=== PATIENT | female | born 1980 | race Hispanic/Latino ===

== ENCOUNTER 2018-11-06 11:37 | Inpatient (IN) | payer SELFPAY ==
[2018-11-06] MEDS ORDERED: CARDIZEM ONE (12:55)
[2018-11-06] MEDS ORDERED: CARDIZEM IV ONE (13:03)
--- NOTE | 2018-11-06 13:14 | Emergency Department Report ---
HPI - General Chief Complaint: Dyspnea/Respdistress Time Seen by Provider: 11/06/18 12:57 - HPI HPI: Room 2 The patient is a 38-year-old female presenting with a chief complaint of shortness of breath. Patient states this morning she awakened with palpitations feeling dizzy and short of breath. Patient denies chest pain. Patient also states she's had a cough productive of clear sputum for the past few days. Location: Heart, see above Duration: [See above] Quality: Palpitations, short of breath Severity: Moderate Modifying factors: [see above] Context: [see above] Mode of transportation: Unknown ED Past Medical Hx - Past Medical History Hx Hypertension: Yes Hx Diabetes: Yes Additional medical history: BELLS PALSY - Surgical History Additional Surgical History: C SECTION - Family History Family history: no significant - Social History Smoking Status: Former Smoker (none 20 years) Substance Use Type: None (denies illicit drug use) ED Review of Systems ROS: Stated complaint: SOB Other details as noted in HPI Constitutional: denies: fever Eyes: denies: eye pain ENT: denies: throat pain Respiratory: shortness of breath Cardiovascular: palpitations. denies: chest pain Endocrine: no symptoms reported Gastrointestinal: denies: abdominal pain Genitourinary: denies: dysuria Musculoskeletal: denies: back pain Neurological: denies: headache Physical Exam - Physical Exam Vital Signs: Vital Signs 11/06/18 11/06/18 12:31 13:05 Temperature 98.4 F Pulse Rate 77 160 H Respiratory 18 Rate Blood Pressure 135/66 116/85 O2 Sat by Pulse 98 Oximetry Physical Exam: GENERAL: The patient is well-developed well-nourished female sitting on stretcher not appearing to be in acute distress. [] HEENT: Normocephalic. Atraumatic. Extraocular motions are intact. Patient has moist mucous membranes. NECK: Supple. Trachea midline CHEST/LUNGS: Clear to auscultation. There is no respiratory distress noted. HEART/CARDIOVASCULAR: Irregularly irregular. There is tachycardia. There is no gallop rub or murmur. ABDOMEN: Abdomen is soft, nontender. Patient has normal bowel sounds. There is no abdominal distention. SKIN: There is no rash. There is no diaphoresis. NEURO: The patient is awake, alert, and oriented. The patient is cooperative. The patient has normal speech MUSCULOSKELETAL: There is no evidence of acute injury. ED Course Vital Signs 11/06/18 11/06/18 12:31 13:05 Temperature 98.4 F Pulse Rate 77 160 H Respiratory 18 Rate Blood Pressure 135/66 116/85 O2 Sat by Pulse 98 Oximetry ED Medical Decision Making - Lab Data Result diagrams: 11/06/18 13:08 11/06/18 13:08 Laboratory Tests 11/06/18 11/06/18 11/06/18 13:08 13:08 13:08 WBC 11.7 H RBC 5.18 H Hgb 15.8 H Hct 47.2 H MCV 91 MCH 31 MCHC 34 RDW 13.8 Plt Count 281 Lymph % (Auto) 30.9 Burt % (Auto) 9.3 H Eos % (Auto) 0.2 Baso % (Auto) 0.8 Lymph # 3.6 Burt # 1.1 H Eos # 0.0 Baso # 0.1 Seg Neutrophils % 58.8 Seg Neutrophils # 6.9 Sodium 139 Potassium 4.0 Chloride 101.3 Carbon Dioxide 24 Anion Gap 18 BUN 8 Creatinine 0.8 Estimated GFR > 60 BUN/Creatinine Ratio 10 Glucose 141 H Calcium 9.2 Magnesium Total Creatine Kinase 57 CK-MB (CK-2) 1.2 CK-MB (CK-2) Rel Index 2.1 Troponin T < 0.010 TSH Free T4 11/06/18 11/06/18 13:08 13:08 WBC RBC Hgb Hct MCV MCH MCHC RDW Plt Count Lymph % (Auto) [place] % (Auto) Eos % (Auto) Baso % (Auto) Lymph # Burt # Eos # Baso # Seg Neutrophils % Seg Neutrophils # Sodium Potassium Chloride Carbon Dioxide Anion Gap BUN Creatinine Estimated GFR BUN/Creatinine Ratio Glucose Calcium Magnesium 1.90 Total Creatine Kinase CK-MB (CK-2) CK-MB (CK-2) Rel Index Troponin T TSH 1.200 Free T4 1.40 - EKG Data -: EKG Interpreted by Me Rate: tachycardia - EKG Data When compared to previous EKG there are: previous EKG unavailable Interpretation: other (A. fib with a rapid ventricular response of 149 bpm) - Radiology Data Radiology results: image reviewed (chest x-ray) interpreted by me: Chest x-ray-no focal infiltrates, no pneumothorax - Differential Diagnosis patient fibrillation, A. fib with RVR, hyperthyroidism, Critical care attestation.: If time is entered above; I have spent that time in minutes in the direct care of this critically ill patient, excluding procedure time. ED Disposition Clinical Impression: Atrial fibrillation with rapid ventricular response, Shortness of breath Disposition: OP ADMIT IP TO THIS HOSP Is pt being admited?: Yes Does the pt Need Aspirin: Yes Condition: Fair Time of Disposition: 13:56 (hospitalist paged (Dr Noel))
[2018-11-06] MEDS ORDERED: ASPIRIN PO ONE (13:16)
[2018-11-06 13:23] LABS: Basophils # (Auto) 0.1 K/mm3 (0.0-0.1); Basophils % (Auto) 0.8 % (0.0-1.8); Eosinophils % (Auto) 0.2 % (0.0-4.3); Hematocrit 47.2 % (30.3-42.9); Hemoglobin 15.8 gm/dl (10.1-14.3); Lymphocytes # (Auto) 3.6 K/mm3 (1.2-5.4); Lymphocytes % (Auto) 30.9 % (13.4-35.0); Mean Corpuscular HGB Conc 34 % (30-34); Mean Corpuscular Hemoglobin 31 pg (28-32); Mean Corpuscular Volume 91 fl (79-97); Monocytes # (Auto) 1.1 K/mm3 (0.0-0.8); Monocytes % (Auto) 9.3 % (0.0-7.3); Platelet Count 281 K/mm3 (140-440); Red Blood Count 5.18 M/mm3 (3.65-5.03); Red Cell Distribution Width 13.8 % (13.2-15.2)
--- NOTE | 2018-11-06 13:34 | XRay Report ---
FINAL REPORT PROCEDURE: XR CHEST ROUTINE 2V TECHNIQUE: PA and lateral chest radiographs were obtained. CPT 71141 HISTORY: Shortness of breath COMPARISON: No prior studies are available for comparison. FINDINGS: Heart: Normal. Mediastinum/Vessels: Normal. Lungs/Pleural space: No infiltrate, effusion, or pneumothorax. Bony thorax: No acute osseous abnormality. Other: IMPRESSION: No pulmonary infiltrates are identified.
[2018-11-06 13:42] LABS: BUN/Creatinine Ratio 10; Blood Urea Nitrogen 8 mg/dL (7-17); Calcium 9.2 mg/dL (8.4-10.2); Hemolysis Index 16
[2018-11-06 13:44] LABS: Creatine Kinase MB 1.2 ng/mL (0.0-4.0)
[2018-11-06 13:53] LABS: Free T4 (Free Thyroxine) 1.4 ng/dL (0.76-1.46)
[2018-11-06] MEDS ORDERED: CARDIZEM 100 MG in D5W 80 ML IV SCH (14:00)
[2018-11-06] MEDS ORDERED: ZOFRAN IV PRN (14:42)
[2018-11-06] MEDS ORDERED: SODIUM CHLORIDE FLUSH SYRINGE 10 ML IV PRN ×2 (14:42→14:47)
[2018-11-06] MEDS ORDERED: PROVENTIL IH PRN (14:42)
[2018-11-06] MEDS ORDERED: NITROSTAT SL PRN (14:47)
[2018-11-06] MEDS ORDERED: BABY ASPIRIN PO STA ×2 (14:47→22:59)
--- NOTE | 2018-11-06 14:47 | History and Physical Report ---
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 Pt states that she has experienced shortness of breath and pain in her chest over the past 3 days with acute worsening symptoms that began this morning after awaking from sleep around 0800hrs. Pt states that her pain is 5/10, substernal, nonradiating, localized to the left side of her chest, nonradiating, associated with palpitations, shortness of breath, dizziness, and diaphoresis. Pt acknowledges decreased exercise tolerance. Pain not worsened with exertion, and not relieved with rest. Pt transported to [facility] for further care and evaluation. Pt seen and evaluated in ED and found to have ACS as well as New Onset Atrial Fib, and suspected Diastolic CHF. Pt admitted to telemetry. Cardiology consulted in ED. Past History Past Medical History: diabetes, hypertension, other (MO, Canyon palsy) Past Surgical History: Social history: single. denies: smoking, alcohol abuse, prescription drug abuse Family history: diabetes, hypertension Medications and Allergies Allergies Allergy/AdvReac Type Severity Reaction Status Date / Time No Known Allergies Allergy Unverified 11/06/18 12:31 Active Meds: Active Medications Acetaminophen (Tylenol) 650 mg PO Q4H PRN PRN Reason: Pain MILD(1-3)/Fever >100.5/ONEAL Albuterol (Proventil) 2.5 mg IH Q4HRT PRN PRN Reason: Shortness Of Breath Diltiazem HCl (Cardizem) 30 mg PO Q6HR LANNY Ondansetron HCl (Zofran) 4 mg IV Q8H PRN PRN Reason: Nausea And Vomiting Sodium Chloride (Sodium Chloride Flush Syringe 10 Ml) 10 ml IV BID LANNY Sodium Chloride (Sodium Chloride Flush Syringe 10 Ml) 10 ml IV PRN PRN PRN Reason: LINE FLUSH Review of Systems Constitutional: no weight loss, no weight gain, no fever, no chills Ears, nose, mouth and throat: no ear pain, no ear discharge, no tinnitis, no decreased hearing, no nose pain Breasts: no change in shape, no swelling, no mass Cardiovascular: chest pain, palpitations, shortness of breath, dyspnea on exertion, decreased exercise tolerance, no edema, no syncope Respiratory: no cough, no cough with sputum, no excessive sputum Gastrointestinal: no nausea, no vomiting, no diarrhea Genitourinary Female: no pelvic pain, no flank pain, no menorrhagia, no dysuria, no urinary frequency, no urgency Rectal: no pain, no incontinence, no bleeding Musculoskeletal: no neck stiffness, no neck pain, no shooting arm pain, no arm numbness/tingling, no low back pain, no shooting leg pain Integumentary: no rash, no pruritis, no redness, no sores, no wounds Neurological: no transient paralysis, no paralysis, no weakness, no parathesias, no numbness, no tingling Psychiatric: no anxiety, no memory loss, no change in sleep habits, no sleep dis turbances, no insomnia, no hypersomnia Endocrine: no cold intolerance, no heat intolerance, no polyphagia, no excessive thirst, no polydipsia, no polyuria Hematologic/Lymphatic: no easy bruising, no easy bleeding, no lymphadenopathy, no lymphedema Allergic/Immunologic: no urticaria, no persistent infections, no anaphylaxis, no angioedema Exam - Constitutional Vitals: Temp Pulse Resp BP Pulse Ox 98.4 F 114 H 22 106/75 98 11/06/18 12:31 11/06/18 14:30 11/06/18 14:30 11/06/18 14:30 11/06/18 12:31 General appearance: Present: mild distress, obese - EENT Eyes: Present: PERRL ENT: hearing intact, clear oral mucosa - Neck Neck: Present: supple, normal ROM - Respiratory Respiratory effort: normal Respiratory: bilateral: CTA - Cardiovascular Rhythm: irregularly irregular Heart Sounds: Present: S1 & S2. Absent: rub, click - Extremities Extremities: pulses symmetrical Extremity abnormal: edema Peripheral Pulses: within normal limits - Abdominal General gastrointestinal: Present: soft, non-tender, non-distended, normal bowel sounds Female genitourinary: Present: normal - Integumentary Integumentary: Present: clear, warm, dry - Musculoskeletal Musculoskeletal: gait normal, strength equal bilaterally - Psychiatric Psychiatric: appropriate mood/affect, intact judgment & insight - Neurologic Neurologic: CNII-XII intact, moves all extremities Results - Labs CBC & Chem 7: 11/06/18 13:08 11/06/18 13:08 Labs: Abnormal lab results 11/06/18 11/06/18 Range/Units 13:08 13:08 WBC 11.7 H (4.5-11.0) K/mm3 RBC 5.18 H (3.65-5.03) M/mm3 Hgb 15.8 H (10.1-14.3) gm/dl Hct 47.2 H (30.3-42.9) % [place] % (Auto) 9.3 H (0.0-7.3) % [place] # 1.1 H (0.0-0.8) K/mm3 Glucose 141 H (65-100) mg/dL Assessment and Plan - Patient Problems (1) ACS (acute coronary syndrome) Current Visit: Yes Status: Acute Plan to address problem: Admit to telemetry, serial cardiac enzymes, ekg, morphine, supplemental oxygen, nitro, aspirin, cardiology consulted in ED. (2) Respiratory failure Current Visit: Yes Status: Acute Qualifiers: Chronicity: acute Respiratory failure complication: hypoxia Qualified Code(s): J96.01 - Acute respiratory failure with hypoxia Plan to address problem: Supplemental oxygen, nebulizer therapy, chest x ray, NIPPV as clinically indicated, pulse oximetry (3) Diastolic CHF Current Visit: Yes Status: Acute Qualifiers: Heart failure chronicity: acute Qualified Code(s): I50.31 - Acute diastolic (congestive) heart failure Plan to address problem: Admit to telemetry, cardiology consulted, echo, strict I/o, daily weight, monitor uop q shift, thyroid panel, bnp, (4) Obesity hypoventilation syndrome Current Visit: Yes Status: Acute Plan to address problem: supplemental oxygen, nebulizer therapy, early ambulation, (5) Atrial fibrillation with rapid ventricular response Current Visit: Yes Status: Acute Plan to address problem: Thyroid panel, Echo, cardizem therapy, telemetry monitoring. rate control, CHADS 2Vasc Score:3, will start therapeutic anticoagulation with eliquis. (6) DVT prophylaxis Current Visit: Yes Status: Acute Plan to address problem: SCD to BLE while in bed.
[2018-11-06 15:39] LABS: Chol/HDL Ratio 7.05 %
[2018-11-06 17:35] LABS: Amphetamine Screen,Urine PRESUMPTIVE NEGATIVE; Benzodiazepines Screen,Urine PRESUMPTIVE NEGATIVE; Cocaine Screen,Urine PRESUMPTIVE NEGATIVE; Methadone Screen,Urine PRESUMPTIVE NEGATIVE; Opiate Screen,Urine PRESUMPTIVE NEGATIVE
[2018-11-06 17:51] LABS: Cannabinoid Screen,Urine PRESUMPTIVE POSITIVE
[2018-11-06] MEDS: TYLENOL PO PRN (18:09)
[2018-11-06] MEDS: ELIQUIS PO SCH (18:09)
[2018-11-06] MEDS: CARDIZEM PO SCH ×3 (18:10→23:03)
[2018-11-06] MEDS: SODIUM CHLORIDE FLUSH SYRINGE 10 ML IV SCH (22:58)
[2018-11-07] MEDS: CARDIZEM PO SCH ×2 (05:47→11:55)
[2018-11-07] MEDS: ELIQUIS PO SCH ×2 (05:50→16:06)
[2018-11-07] MEDS: TYLENOL PO PRN (08:47)
[2018-11-07] MEDS: SODIUM CHLORIDE FLUSH SYRINGE 10 ML IV SCH (10:45)
--- NOTE | 2018-11-07 12:11 | Consultation ---
History of Present Illness Consult date: 11/07/18 Consult reason: atrial fibrillation History of present illness: This is a 38 year old woman who gives a history of hypertension, diabetes who presented with palpitations. She was found to be in rapid atrial fibrillation which was treated with intravenous diltiazem. She has since reverted to a stable sinus rhythm, no acute ischemic changes seen on her ECG. TSH is normal. Patient denies a history of arrhythmias. There is no history of coronary artery disease. A cardiac consultation has been requested for further management of paroxysmal Afib. Past History Past Surgical History: Social history: single. denies: smoking, alcohol abuse, prescription drug abuse Family history: diabetes, hypertension Medications and Allergies Allergies Allergy/AdvReac Type Severity Reaction Status Date / Time No Known Allergies Allergy Unverified 11/06/18 12:31 Active Meds: Active Medications Acetaminophen (Tylenol) 650 mg PO Q4H PRN PRN Reason: Pain MILD(1-3)/Fever >100.5/ONEAL Last Admin: 11/07/18 08:47 Dose: 650 mg Documented by: Albuterol (Proventil) 2.5 mg IH Q4HRT PRN PRN Reason: Shortness Of Breath Apixaban (Eliquis) 5 mg PO Q12H [facility]; Protocol Last Admin: 11/07/18 05:50 Dose: 5 mg Documented by: Diltiazem HCl (Cardizem) 30 mg PO Q6HR [facility] Last Admin: 11/07/18 11:55 Dose: 30 mg Documented by: Nitroglycerin (Nitrostat) 0.4 mg SL Q5M PRN PRN Reason: Chest Pain Ondansetron HCl (Zofran) 4 mg IV Q8H PRN PRN Reason: Nausea And Vomiting Sodium Chloride (Sodium Chloride Flush Syringe 10 Ml) 10 ml IV BID [facility] Last Admin: 11/07/18 10:45 Dose: 10 ml Documented by: Sodium Chloride (Sodium Chloride Flush Syringe 10 Ml) 10 ml IV PRN PRN PRN Reason: LINE FLUSH Sodium Chloride (Sodium Chloride Flush Syringe 10 Ml) 10 ml IV PRN PRN PRN Reason: LINE FLUSH Physical Examination Vital Signs Temp Pulse Resp BP Pulse Ox 98.4 F 77 18 135/66 98 11/06/18 12:31 11/06/18 12:31 11/06/18 12:31 12/30/18 12:31 11/06/18 12:31 General appearance: no acute distress HEENT: Positive: PERRL Cardiac: Positive: Reg Rate and Rhythm Lungs: Positive: Decreased Breath Sounds Neuro: Positive: Grossly Intact Extremities: Absent: edema Results 11/06/18 13:08 11/06/18 13:08 Cardiac Enzymes 11/06/18 Range/Units 13:08 CK-MB (CK-2) 1.2 (0.0-4.0) ng/mL Lipids 11/06/18 Range/Units 15:10 Triglycerides 153 H (2-149) mg/dL Cholesterol 268 H (50-199) mg/dL HDL Cholesterol 38 L (40-59) mg/dL Cholesterol/HDL Ratio 7.05 % CBC 11/06/18 Range/Units 13:08 WBC 11.7 H (4.5-11.0) K/mm3 RBC 5.18 H (3.65-5.03) M/mm3 Hgb 15.8 H (10.1-14.3) gm/dl Hct 47.2 H (30.3-42.9) % Plt Count 281 (140-440) K/mm3 Lymph # 3.6 (1.2-5.4) K/mm3 [place] # 1.1 H (0.0-0.8) K/mm3 Eos # 0.0 (0.0-0.4) K/mm3 Baso # 0.1 (0.0-0.1) K/mm3 Comprehensive Metabolic Panel 11/06/18 Range/Units 13:08 Sodium 139 (137-145) mmol/L Potassium 4.0 (3.6-5.0) mmol/L Chloride 101.3 (98-107) mmol/L Carbon Dioxide 24 (22-30) mmol/L BUN 8 (7-17) mg/dL Creatinine 0.8 (0.7-1.2) mg/dL Glucose 141 H (65-100) mg/dL Calcium 9.2 (8.4-10.2) mg/dL Assessment and Plan - Patient Problems (1) Atrial fibrillation with rapid ventricular response Current Visit: Yes Status: Acute Plan to address problem: Afib - reverted to sinus rhythm normal TSH
[2018-11-07 16:24] VITALS: BP 145/90
--- NOTE | 2018-11-07 18:18 | Discharge Summary ---
Providers - Providers Date of Admission: 11/06/18 14:42 Date of discharge: 11/07/18 Attending physician: AVIVA ALEX 11/06/18 Consult to Cardiac Rehabilitation [CONS] Routine Reason For Exam: Phase I 11/06/18 14:44 Consult to Cardiology [CONS] Routine Consulting Provider: WELLINGTON SEGAL Reason For Exam: new onset a fib Primary care physician: WARP HAND Hospitalization Condition: Fair Pertinent studies: ECHO-Normal Hospital course: 38-year-old woman who presented to the hospital with acute symptomatic atrial fibrillation. On presentation, her ECG was rapid atrial fibrillation. She was treated with intravenous Cardizem, and has reverted to a stable sinus rhythm with resolution of her presenting symptoms. EKG in sinus rhythm shows no acute ischemic ST or T-wave abnormalities. There are no obvious precipitating factors, no caffeine or alcohol use. No previous cardiac history. Comorbidities include hypertension for which she is on amlodipine and very low- dose metoprolol, diabetes. Workup so far in the hospital, TSH is normal at 1.2, chest x-ray is normal, echocardiogram shows well-preserved left ventricular systolic function. Recommendations: We will continue her amlodipine for hypertension, but increase metoprolol to 50 mg by mouth twice a day for atrial fibrillation prophylaxis. 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 Patient is stable for cardiac discharge, she will be followed up as an outpatient in 5-7 days for a treadmill stress test. Disposition: TO HOME OR SELFCARE Core Measure Documentation - Palliative Care Palliative Care/ Comfort Measures: Not Applicable - Core Measures Any of the following diagnoses?: none Exam - Constitutional Vitals: Temp Pulse Resp BP Pulse Ox 98.3 F 102 H 20 145/90 94 11/07/18 16:14 11/07/18 16:14 11/07/18 16:14 11/07/18 16:14 11/07/18 16:14 General appearance: Present: no acute distress, well-nourished - EENT Eyes: Present: PERRL ENT: hearing intact, clear oral mucosa - Neck Neck: Present: supple, normal ROM - Respiratory Respiratory effort: normal Respiratory: bilateral: CTA - Cardiovascular Heart rate: 78 Rhythm: regular Heart Sounds: Present: S1 & S2. Absent: rub, click - Extremities Extremities: no ischemia, pulses intact, pulses symmetrical, No edema Peripheral Pulses: within normal limits - Abdominal General gastrointestinal: Present: soft, non-tender, non-distended, normal bowel sounds Female genitourinary: Present: normal - Integumentary Integumentary: Present: clear, warm, dry - Musculoskeletal Musculoskeletal: gait normal, strength equal bilaterally - Psychiatric Psychiatric: appropriate mood/affect, intact judgment & insight - Neurologic Neurologic: CNII-XII intact, moves all extremities Plan Activity: no restrictions Diet: low fat, low cholesterol, low salt Follow up with: PRIMARY CAREMD [Primary Care Provider] - 7 Days WELLINGTON SEGAL MD [Staff Physician] - 7 Days
[2018-11-07] MEDS ORDERED: LOPRESSOR PO SCH (22:00)
== END 2018-11-07 19:41 | disposition home or self-care (01) | DRG 291 ==
LOC: ED 11:37 → 4A 14:42
PROVIDERS: ADMIT Internal Medicine; ATTEND Internal Medicine
DX: I50.31 Acute diastolic (congestive) heart failure (principal); J96.01 Acute respiratory failure with hypoxia; E66.2 Morbid (severe) obesity with alveolar hypoventilation; Z68.41 Body mass index [BMI] 40.0-44.9, adult; I48.91 Unspecified atrial fibrillation; G51.0 Bell's palsy; Z87.891 Personal history of nicotine dependence; Z83.3 Family history of diabetes mellitus; Z82.49 Family history of ischemic heart disease and other diseases of the circulatory system
CPT/HCPCS: 36415; 71046; 80048; 80061; 80307; 82550; 82553; 82962; 83735; 83880; 84439; 84443; 84484; 85025; 85379; 93005; 93010; 93306; 96365; 96375; G0378

== ENCOUNTER 2019-06-26 13:52 | Emergency (ER) | payer BC ==
[2019-06-26 14:11] VITALS: BP 129/80
--- NOTE | 2019-06-26 14:13 | Event Note ---
ED Screening Note Date of service: 06/26/19 Time: 14:09 ED Screening Note: 39 y/o female comes in left rib pain s/p fall this morning at home. LMP 05/21/19. This initial assessment/diagnostic orders/clinical plan/treatment(s) is/are subject to change based on patients health status, clinical progression and re- assessment by fellow clinical providers in the ED. Further treatment and workup at subsequent clinical providers discretion. Patient/guardian urged not to elope from the ED as their condition may be serious if not clinically assessed and managed. Initial orders include:
[2019-06-26] MEDS ORDERED: IBUPROFEN PO ONE (14:41)
--- NOTE | 2019-06-26 14:49 | Emergency Department Report ---
ED Fall HPI - General Chief Complaint: Fall Stated Complaint: FALL INJURY/PAIN Time Seen by Provider: 06/26/19 14:08 Source: patient Mode of arrival: Ambulatory - History of Present Illness Initial Comments: Mrs. Wheeler is a very pleasant 39-year-old female who injured herself at home. She slipped down several steps. The surface was slick and moist. She has left lower rib cage pain. Mild elbow pain. Abrasion to left lower leg. Moderately severe pain. The incident occurred this morning. Multiple abrasions. MD Complaint: fall -: This morning Fall From: down stairs (#) When Fall Occurred: 4-6 hours [employer] Fall Witnessed: no Place Fall Occurred: home Loss of Consciousness: none Prolonged Down Time?: no Symptoms Prior to Fall: none Location: chest Location - Extremities: Left: Forearm, Leg Severity: moderate Severity scale (0 -10): 6 Quality: sharp, dull Context: tripped/slipped Associated Symptoms: denies - Related Data Previous Rx's Medication Instructions Recorded Last Taken Type Metoprolol [Lopressor TAB] 50 mg PO BID #60 tablet 11/07/18 Unknown Rx amLODIPine [Norvasc] 5 mg PO DAILY #30 tab 11/07/18 Unknown Rx Cyclobenzaprine [Flexeril] 10 mg PO TID PRN #20 tablet 06/26/19 Unknown Rx Ibuprofen [Motrin 800 MG tab] 800 mg PO Q8HR PRN #15 tablet 06/26/19 Unknown Rx Allergies Allergy/AdvReac Type Severity Reaction Status Date / Time No Known Allergies Allergy Unverified 11/06/18 12:31 ED Review of Systems ROS: Stated complaint: FALL INJURY/PAIN Other details as noted in HPI Constitutional: denies: fever Respiratory: denies: cough, shortness of breath Cardiovascular: chest pain Gastrointestinal: denies: abdominal pain, nausea, vomiting Skin: lesions Neurological: denies: headache, numbness, paresthesias ED Past Medical Hx - Past Medical History Previous Medical History?: Yes Hx Hypertension: Yes Hx CVA: No Hx Congestive Heart Failure: No Hx Diabetes: Yes Hx Deep Vein Thrombosis: No Hx Pulmonary Embolism: No Hx GERD: No Hx Liver Disease: No Hx Renal Disease: No Hx of Cancer: No Hx Sickle Cell Disease: No Hx Arthritis: No Hx Headaches / Migraines: No Hx Seizures: No Hx Kidney Stones: No Hx Psychiatric Treatment: No Hx Asthma: No Hx COPD: No Hx Tuberculosis: No Hx Dementia: No Hx HIV: No Additional medical history: BELLS PALSY - Surgical History Past Surgical History?: Yes Hx Coronary Stent: No Hx Open Heart Surgery: No Hx Pacemaker: No Hx Internal Defibrillator: No Hx Cholecystectomy: No Hx Appendectomy: No Hx Breast Surgery: No Additional Surgical History: C SECTION - Social History Smoking Status: Never Smoker Substance Use Type: None - Medications Home Medications: Home Medications Medication Instructions Recorded Confirmed Last Taken Type Metoprolol [Lopressor TAB] 50 mg PO BID #60 tablet 11/07/18 Unknown Rx amLODIPine [Norvasc] 5 mg PO DAILY #30 tab 11/07/18 Unknown Rx Cyclobenzaprine [Flexeril] 10 mg PO TID PRN #20 tablet 06/26/19 Unknown Rx Ibuprofen [Motrin 800 MG tab] 800 mg PO Q8HR PRN #15 tablet 06/26/19 Unknown Rx ED Physical Exam - General Limitations: No Limitations General appearance: alert, in no apparent distress - Head Head exam: Present: atraumatic, normocephalic - Eye Eye exam: Present: normal appearance - ENT ENT exam: Present: mucous membranes moist - Neck Neck exam: Present: normal inspection - Respiratory Respiratory exam: Present: normal lung sounds bilaterally, chest wall tenderness. Absent: respiratory distress - Cardiovascular Cardiovascular Exam: Present: regular rate, normal rhythm, normal heart sounds. Absent: systolic murmur, diastolic murmur, rubs, gallop - GI/Abdominal GI/Abdominal exam: Present: soft, normal bowel sounds. Absent: distended, tenderness, guarding, rebound - Extremities Exam Extremities exam: Present: normal inspection - Back Exam Back exam: Present: normal inspection - Neurological Exam Neurological exam: Present: alert, oriented X3 - Psychiatric Psychiatric exam: Present: normal affect, normal mood - Skin Skin exam: Present: warm, dry, normal color, abrasion. Absent: rash - Other Other exam information: Left elbow full range of motion without deformity or crepitus: Chest wall tenderness in the mid axillary line left lower rib cage, multiple abrasions superficial left lower leg ED Course Vital Signs 06/26/19 14:09 Temperature 98.3 F Pulse Rate 84 Respiratory 16 Rate Blood Pressure 129/80 O2 Sat by Pulse 97 Oximetry ED Medical Decision Making - Radiology Data Radiology results: report reviewed Rib series with chest tube coming to radiology impression: No rib fracture no pneumothorax no acute process - Medical Decision Making Left chest wall pain, left elbow contusion, leg abrasions: No evidence of significant traumatic injury prescribed ibuprofen Flexeril Critical care attestation.: If time is entered above; I have spent that time in minutes in the direct care of this critically ill patient, excluding procedure time. ED Disposition Clinical Impression: Chest wall contusion, Leg abrasion, Left elbow contusion, Fall down stairs Disposition: TO HOME OR SELFCARE Is pt being admited?: No Does the pt Need Aspirin: No Condition: Stable Instructions: Contusion in Adults (ED) Prescriptions: Cyclobenzaprine [Flexeril] 10 mg PO TID PRN #20 tablet PRN Reason: Muscle Spasm Ibuprofen [Motrin 800 MG tab] 800 mg PO Q8HR PRN #15 tablet PRN Reason: Pain , Severe (7-10) Forms: Work/School Release Form(ED)
--- NOTE | 2019-06-26 15:22 | XRay Report ---
LEFT RIBS, 4 VIEWS INDICATION: left rib pain s/p fall. COMPARISON: None. IMPRESSION: No displaced left rib fracture is detected on x-ray. No bony lesion. The left lung is w ell-aerated. Signer Name: Andi To Jr, MD Signed: 06/26/2019 3:18 PM Workstation Name: [id number]
== END 2019-06-26 16:01 | disposition home or self-care (01) ==
LOC: ED 13:52
DX: S50.02XA Contusion of left elbow, initial encounter (principal); S20.219A Contusion of unspecified front wall of thorax, initial encounter; S80.812A Abrasion, left lower leg, initial encounter; I10 Essential (primary) hypertension; E11.9 Type 2 diabetes mellitus without complications; G51.0 Bell's palsy; Z98.890 Other specified postprocedural states; Z79.899 Other long term (current) drug therapy; W10.9XXA Fall (on) (from) unspecified stairs and steps, initial encounter; Y93.01 Activity, walking, marching and hiking; Y92.009 Unspecified place in unspecified non-institutional (private) residence as the place of occurrence of the external cause; Y99.8 Other external cause status

== ENCOUNTER 2020-02-23 10:12 | Emergency (ER) | payer BC ==
[2020-02-23 10:40] LABS: Basophils # (Auto) 0.1 K/mm3 (0.0-0.1); Basophils % (Auto) 0.8 % (0.0-1.8); Eosinophils # (Auto) 0.1 K/mm3 (0.0-0.4); Eosinophils % (Auto) 0.8 % (0.0-4.3); Hematocrit 42.9 % (30.3-42.9); Hemoglobin 14.6 gm/dl (10.1-14.3); Lymphocytes # (Auto) 3.5 K/mm3 (1.2-5.4); Lymphocytes % (Auto) 31.7 % (13.4-35.0); Mean Corpuscular HGB Conc 34 % (30-34); Mean Corpuscular Volume 88 fl (79-97); Monocytes # (Auto) 0.9 K/mm3 (0.0-0.8); Platelet Count 257 K/mm3 (140-440); Red Blood Count 4.86 M/mm3 (3.65-5.03); Red Cell Distribution Width 13.7 % (13.2-15.2)
[2020-02-23 10:51] LABS: INR 1.03 (0.87-1.13)
--- NOTE | 2020-02-23 10:57 | XRay Report ---
CHEST 2 VIEWS INDICATION / CLINICAL INFORMATION: Chest Pain. COMPARISON: Chest x-ray on 06/26/2019. FINDINGS: SUPPORT DEVICES: None. HEART / MEDIASTINUM: No significant abnormality. LUNGS / PLEURA: No significant pulmonary or pleural abnormality. No pneumothorax. ADDITIONAL FINDINGS: No significant additional findings. IMPRESSION: 1. No acute findings. No adverse change from previous exams. Signer Name: Edgar Brown MD Signed: 02/23/2020 10:53 AM Workstation Name: [id number]
[2020-02-23 11:01] LABS: BUN/Creatinine Ratio 18; Blood Urea Nitrogen 14 mg/dL (7-17); Calcium 9.2 mg/dL (8.4-10.2); Hemolysis Index 7
--- NOTE | 2020-02-23 11:18 | Emergency Department Report ---
ED Palpitations HPI - General Chief Complaint: Arrhythmia/Palpitations Stated Complaint: SOB Time Seen by Provider: 02/23/20 11:08 Source: patient Mode of arrival: Ambulatory Limitations: No Limitations - History of Present Illness Initial Comments: 40-year-old female with history of A. fib, CHF, presents to ED with palpitations and shortness of breath x5 days. Patient states palpitations initially began 5 days ago but have mostly resolved. She states over the last 2 to 3 days dyspnea on exertion has been worse. Patient states it felt like she was in A. fib. States she is not on any blood thinners currently. Patient denies any orthopnea, leg pain or swelling, and chest pain. 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 Patient denies any COVID symptoms, including fever, cough, loss of smell or taste. She denies being around any known COVID positive patients or persons. MD Complaint: palpitations -: days(s) (5) Context: occured during rest, occured during exertion Arrythmia History: atrial fibrillation Associated Symptoms: shortness of breath. denies: chest pain, cough - Related Data Previous Rx's Medication Instructions Recorded Last Taken Type Metoprolol [Lopressor TAB] 50 mg PO BID #60 tablet 11/07/18 Unknown Rx amLODIPine 5 mg PO DAILY #30 tab 11/07/18 Unknown Rx Cyclobenzaprine [Flexeril] 10 mg PO TID PRN #20 tablet 06/26/19 Unknown Rx Ibuprofen [Motrin 800 MG tab] 800 mg PO Q8HR PRN #15 tablet 06/26/19 Unknown Rx Allergies Allergy/AdvReac Type Severity Reaction Status Date / Time No Known Allergies Allergy Verified 02/23/20 10:12 ED Review of Systems ROS: Stated complaint: SOB Other details as noted in HPI Comment: All other systems reviewed and negative Constitutional: denies: chills, fever Respiratory: SOB with exertion. denies: cough, orthopnea Cardiovascular: denies: chest pain Gastrointestinal: denies: nausea, vomiting Musculoskeletal: other (Denies leg pain or swelling) ED Past Medical Hx - Past Medical History Hx Hypertension: Yes Hx CVA: No Hx Congestive Heart Failure: No Hx Diabetes: Yes Hx Deep Vein Thrombosis: No Hx Pulmonary Embolism: No Hx GERD: No Hx Liver Disease: No Hx Renal Disease: No Hx Sickle Cell Disease: No Hx Arthritis: No Hx Headaches / Migraines: No Hx Seizures: No Hx Kidney Stones: No Hx Psychiatric Treatment: No Hx Asthma: No Hx COPD: No Hx Tuberculosis: No Hx Dementia: No Hx HIV: No Additional medical history: BELLS PALSY/ HIGH CHOLESTROL/ A FIB - Surgical History Hx Coronary Stent: No Hx Open Heart Surgery: No Hx Pacemaker: No Hx Internal Defibrillator: No Hx Cholecystectomy: No Hx Appendectomy: No Hx Breast Surgery: No Additional Surgical History: C SECTION - Social History Smoking Status: Never Smoker Substance Use Type: None - Medications Home Medications: Home Medications Medication Instructions Recorded Confirmed Last Taken Type Metoprolol [Lopressor TAB] 50 mg PO BID #60 tablet 11/07/18 Unknown Rx amLODIPine 5 mg PO DAILY #30 tab 11/07/18 Unknown Rx Cyclobenzaprine [Flexeril] 10 mg PO TID PRN #20 tablet 06/26/19 Unknown Rx Ibuprofen [Motrin 800 MG tab] 800 mg PO Q8HR PRN #15 tablet 06/26/19 Unknown Rx ED Physical Exam - General Limitations: No Limitations General appearance: alert, in no apparent distress, obese - Head Head exam: Present: atraumatic, normocephalic - Eye Eye exam: Present: normal appearance - ENT ENT exam: Present: mucous membranes moist - Neck Neck exam: Present: normal inspection - Respiratory Respiratory exam: Present: normal lung sounds bilaterally. Absent: respiratory distress - Cardiovascular Cardiovascular Exam: Present: regular rate, normal rhythm - GI/Abdominal GI/Abdominal exam: Present: soft. Absent: distended, tenderness - Extremities Exam Extremities exam: Present: normal inspection. Absent: pedal edema, calf tenderness - Neurological Exam Neurological exam: Present: alert, oriented X3 - Psychiatric Psychiatric exam: Present: normal affect, normal mood - Skin Skin exam: Present: warm, dry, intact, normal color ED Course Vital Signs 02/23/20 02/23/20 02/23/20 10:14 10:59 11:01 Temperature 97.8 F Pulse Rate 90 88 Respiratory 20 22 Rate Blood Pressure 121/80 O2 Sat by Pulse 96 98 96 Oximetry 02/23/20 02/23/20 02/23/20 11:05 11:15 11:30 Temperature Pulse Rate 87 87 Respiratory 18 21 15 Rate Blood Pressure 124/86 137/110 O2 Sat by Pulse 99 96 96 Oximetry 02/23/20 02/23/20 11:45 12:01 Temperature Pulse Rate 84 90 Respiratory 22 15 Rate Blood Pressure 120/87 120/87 O2 Sat by Pulse 97 98 Oximetry ED Medical Decision Making - Lab Data Result diagrams: 02/23/20 10:24 02/23/20 10:24 - EKG Data -: EKG Interpreted by [facility] EKG shows normal: sinus rhythm, axis, intervals, QRS complexes, ST-T waves Rate: normal - EKG Data Interpretation: no acute changes - Radiology Data Radiology results: report reviewed, image reviewed - Medical Decision Making 40-year-old female with history of A. fib presents to ED with palpitations and dyspnea. Patient not currently A. fib, EKG shows normal sinus rhythm with no ST changes. Vital signs are normal. Labs were normal, including troponin and d- dimer. Chest x-ray unremarkable, no edema or infiltrates noted. O2 sats are normal, patient is in no respiratory distress. Patient comfortable with discharge home at this time. Advised cardiology follow-up. Return precautions given. - Differential Diagnosis A. fib, ACS, pulmonary edema, pneumonia, pleural effusion, PE Critical care attestation.: If time is entered above; I have spent that time in minutes in the direct care of this critically ill patient, excluding procedure time. ED Disposition Clinical Impression: Palpitations, Shortness of breath Disposition: TO HOME OR SELFCARE Is pt being admited?: No Condition: Stable Instructions: Palpitations (ED), Dyspnea (ED) Referrals: PRIMARY CARE, [Primary Care Provider] - 3-5 Days JASWANT BANKS MD [Staff Physician] - 3-5 Days Forms: Work/School Release Form(ED) Time of Disposition: 12:01
[2020-02-23 12:00] VITALS: BP 120/87
== END 2020-02-23 12:29 | disposition home or self-care (01) ==
LOC: ED 10:12
DX: R06.02 Shortness of breath (principal); R00.2 Palpitations; R06.00 Dyspnea, unspecified; E11.9 Type 2 diabetes mellitus without complications; E78.00 Pure hypercholesterolemia, unspecified; I48.91 Unspecified atrial fibrillation; Z79.899 Other long term (current) drug therapy; Z98.890 Other specified postprocedural states
CPT/HCPCS: 36415; 71046; 80048; 84484; 85025; 85379; 85610; 93005

== ENCOUNTER 2020-08-26 07:04 | Outpatient (CLI) | payer BC | END 2020-08-26 07:05 | disposition home or self-care (01) | LOC: ECHO 07:04 | PROVIDERS: ATTEND Internal Medicine | DX: I34.0 Nonrheumatic mitral (valve) insufficiency (principal); R00.0 Tachycardia, unspecified; I10 Essential (primary) hypertension; E11.9 Type 2 diabetes mellitus without complications; E78.49 Other hyperlipidemia; Z86.79 Personal history of other diseases of the circulatory system | CPT/HCPCS: 93306 ==

== ENCOUNTER 2020-09-23 09:37 | Outpatient (CLI) | payer BC ==
[2020-09-23 11:11] LABS: Chol/HDL Ratio 4.13 %
== END 2020-09-23 09:38 | disposition home or self-care (01) ==
LOC: LAB 09:37
PROVIDERS: ATTEND Internal Medicine
DX: Z13.29 Encounter for screening for other suspected endocrine disorder (principal); E11.9 Type 2 diabetes mellitus without complications; E78.5 Hyperlipidemia, unspecified; Z13.21 Encounter for screening for nutritional disorder
CPT/HCPCS: 36415; 80061; 82306; 82607; 83036; 84443

== ENCOUNTER 2020-10-31 07:35 | Emergency (ER) | payer BC ==
[2020-10-31 08:01] VITALS: BP 158/103
--- NOTE | 2020-10-31 11:53 | Emergency Department Report ---
HPI - General Chief Complaint: Sore Throat Time Seen by Provider: 10/31/20 11:48 - HPI HPI: This is a 40-year-old female presents to the emergency department with a complaint of a sore throat and "my uvula is swollen" upon waking up this morning. She denies any fever, difficulty swallowing, shortness of breath, chest pain. Patient took a dose of Benadryl prior to arrival. She has a past medical history of high cholesterol, atrial fibrillation, diabetes, hypertension, CHF. Her primary care physician is Dr. Bar. No recent travel or sick contacts at home. ED Past Medical Hx - Past Medical History Hx Hypertension: Yes Hx CVA: No Hx Congestive Heart Failure: No Hx Diabetes: Yes Hx Deep Vein Thrombosis: No Hx Pulmonary Embolism: No Hx GERD: No Hx Liver Disease: No Hx Renal Disease: No Hx Sickle Cell Disease: No Hx Arthritis: No Hx Headaches / Migraines: No Hx Seizures: No Hx Kidney Stones: No Hx Psychiatric Treatment: No Hx Asthma: No Hx COPD: No Hx Tuberculosis: No Hx Dementia: No Hx HIV: No Additional medical history: BELLS PALSY/ HIGH CHOLESTROL/ A FIB - Surgical History Hx Coronary Stent: No Hx Open Heart Surgery: No Hx Pacemaker: No Hx Internal Defibrillator: No Hx Cholecystectomy: No Hx Appendectomy: No Hx Breast Surgery: No Additional Surgical History: C SECTION - Social History Smoking Status: Never Smoker - Medications Home Medications: Home Medications Medication Instructions Recorded Confirmed Last Taken Type Metoprolol [Lopressor TAB] 50 mg PO BID #60 tablet 11/07/18 Unknown Rx amLODIPine 5 mg PO DAILY #30 tab 11/07/18 Unknown Rx Cyclobenzaprine [Flexeril] 10 mg PO TID PRN #20 tablet 06/26/19 Unknown Rx Ibuprofen [Motrin 800 MG tab] 800 mg PO Q8HR PRN #15 tablet 06/26/19 Unknown Rx Azithromycin [Zithromax Z-DANITA] 250 mg PO DAILY #6 tab 10/31/20 Unknown Rx ED Review of Systems ROS: Stated complaint: SWOLLEN THROAT Other details as noted in HPI Comment: All other systems reviewed and negative Constitutional: denies: chills, fever Eyes: denies: eye pain, vision change ENT: throat pain. denies: ear pain Respiratory: denies: cough, shortness of breath Cardiovascular: denies: chest pain Gastrointestinal: denies: abdominal pain Musculoskeletal: denies: back pain, arthralgia Skin: denies: rash, lesions Neurological: denies: headache, weakness Physical Exam - Physical Exam Vital Signs: Vital Signs 10/31/20 07:57 Temperature 97.7 F Pulse Rate 104 H Respiratory 18 Rate Blood Pressure 158/103 O2 Sat by Pulse 97 Oximetry Physical Exam: GENERAL: The patient is well-developed well-nourished. HENT: Normocephalic. Atraumatic. Patient has moist mucous membranes. The uvula is mildly to mildly enlarged with some erythema. There is an exudate seen inferiorly. No drooling or trismus. EYES: Extraocular motions are intact. NECK: Supple. Trachea is midline. No palpable lymphadenopathy. CHEST/LUNGS: Clear to auscultation. There is no respiratory distress noted. HEART/CARDIOVASCULAR: Regular. There is no tachycardia. There is no murmur. ABDOMEN: Abdomen is soft, nontender. Patient has normal bowel sounds. SKIN: Skin is warm and dry. NEURO: The patient is awake, alert, and oriented. The patient is cooperative. Normal speech. MUSCULOSKELETAL: There is no tenderness or deformity. There is no limitation range of motion. ED Course Vital Signs 10/31/20 07:57 Temperature 97.7 F Pulse Rate 104 H Respiratory 18 Rate Blood Pressure 158/103 O2 Sat by Pulse 97 Oximetry ED Medical Decision Making - Medical Decision Making Patient has a slightly enlarged and erythematous uvula with an exudate to the inferior portion of the uvula. No drooling or trismus. Vital signs reassuring including being afebrile. The patient will be placed on some azithromycin for developing uvulitis. She has good outpatient follow-up with Dr Bar. Critical Care Time: No Critical care attestation.: If time is entered above; I have spent that time in minutes in the direct care of this critically ill patient, excluding procedure time. ED Disposition Clinical Impression: Uvulitis Hypertension Qualifiers: Hypertension type: essential hypertension Qualified Code(s): I10 - Essential (primary) hypertension Disposition: TO HOME OR SELFCARE Is pt being admited?: No Condition: Stable Instructions: Uvulitis, Hypertension (ED) Additional Instructions: Please follow-up with your primary care physician in the next few days. Take the medications as prescribed. Return to the emergency department with any worsening of your symptoms, new or concerning symptoms not addressed during this current emergency department visit, or with any acute distress. Prescriptions: Azithromycin [Zithromax Z-DANITA] 250 mg PO DAILY #6 tab Referrals: SKIP BAR MD [Primary Care Provider] - 3-5 Days Time of Disposition: 11:52
== END 2020-10-31 12:08 | disposition home or self-care (01) ==
LOC: ED 07:35
DX: K12.2 Cellulitis and abscess of mouth (principal); I10 Essential (primary) hypertension; E11.9 Type 2 diabetes mellitus without complications; Z79.1 Long term (current) use of non-steroidal anti-inflammatories (NSAID); Z79.899 Other long term (current) drug therapy
CPT/HCPCS: 99281

== ENCOUNTER 2021-02-05 09:16 | Outpatient (CLI) | payer BC ==
[2021-02-05 09:40] LABS: Basophils # (Auto) 0.1 K/mm3 (0.0-0.1); Basophils % (Auto) 0.6 % (0.0-1.8); Eosinophils # (Auto) 0.1 K/mm3 (0.0-0.4); Eosinophils % (Auto) 0.9 % (0.0-4.3); Hematocrit 40.4 % (30.3-42.9); Hemoglobin 13.6 gm/dl (10.1-14.3); Lymphocytes # (Auto) 2.9 K/mm3 (1.2-5.4); Lymphocytes % (Auto) 33.6 % (13.4-35.0); Mean Corpuscular HGB Conc 34 % (30-34); Mean Corpuscular Volume 92 fl (79-97); Monocytes # (Auto) 0.7 K/mm3 (0.0-0.8); Monocytes % (Auto) 8.6 % (0.0-7.3); Platelet Count 194 K/mm3 (140-440); Red Blood Count 4.38 M/mm3 (3.65-5.03); Red Cell Distribution Width 13.8 % (13.2-15.2)
[2021-02-05 10:06] LABS: Alanine Aminotransferase 28 units/L (7-56); Blood Urea Nitrogen 11 mg/dL (7-17); Calcium 9.2 mg/dL (8.4-10.2); Chol/HDL Ratio 4.23 %; HDL Cholesterol 46 mg/dL (40-59); Hemolysis Index 7; LDL Cholesterol,Direct 145 mg/dL (50-130)
[2021-02-05 10:21] LABS: BUN/Creatinine Ratio 16
[2021-02-05 11:56] LABS: Creatinine,Urine 93.9 mg/dL (0.1-20.0); Microalbumin/Creatinine Ratio 19.1 ug/mg
== END 2021-02-05 09:17 | disposition home or self-care (01) ==
LOC: LAB 09:16
PROVIDERS: ATTEND Internal Medicine
DX: E11.40 Type 2 diabetes mellitus with diabetic neuropathy, unspecified (principal); E78.5 Hyperlipidemia, unspecified
CPT/HCPCS: 36415; 80053; 80061; 82043; 83036; 85025

== ENCOUNTER 2021-06-09 09:09 | Outpatient (CLI) | payer BC ==
[2021-06-09 12:56] VITALS: BP 128/73
--- NOTE | 2021-06-10 10:55 | Treadmill Report ---
DATE OF SERVICE: 06/09/2021 NUCLEAR PERFUSION SCAN REFERRING PHYSICIAN: Dr. Soto in our office. PROTOCOL: The patient was assessed in postoperative state, given 10 mCi of technetium at rest. The patient had rest imaging. The patient underwent Lexiscan stress test per standard protocol. At peak stress, the patient given 26 mCi technetium-99m. Shortly thereafter, the patient underwent stress imaging. Raw imaging reveals mild GI artifact, no significant motion artifact. SPECT imaging examined carefully in the horizontal long axis, vertical long axis, short axis views. There was GI artifact, technically difficult study, but grossly no evidence of a significant fixed or reversible perfusion defect suggestive of prior infarction or ischemia. Gated wall motion reveals normal systolic thickening, calculated ejection fraction of 75%. No TID. CONCLUSIONS: 1. Technically difficult study, but grossly probably normal without evidence of a significant degree of ischemia or prior infarction. 2. Normal left ventricular systolic performance without evidence of transient ischemic dilatation or stress-induced segmental wall motion abnormalities. TID: [id number] RECEIPT: [id number] GAIL/JE
== END 2021-06-09 09:10 | disposition home or self-care (01) ==
LOC: CARD 09:09
PROVIDERS: ATTEND Internal Medicine
DX: R00.0 Tachycardia, unspecified (principal)
CPT/HCPCS: 78452; 93017; 93306; A9502

== ENCOUNTER 2021-06-30 10:15 | Outpatient (CLI) | payer BC ==
[2021-06-30 11:06] LABS: Basophils % (Auto) 0.6 % (0.0-1.8); Eosinophils # (Auto) 0.1 K/mm3 (0.0-0.4); Eosinophils % (Auto) 1.3 % (0.0-4.3); Hematocrit 39.1 % (30.3-42.9); Hemoglobin 13.5 gm/dl (10.1-14.3); Lymphocytes # (Auto) 2.8 K/mm3 (1.2-5.4); Lymphocytes % (Auto) 33.4 % (13.4-35.0); Mean Corpuscular HGB Conc 34 % (30-34); Mean Corpuscular Volume 94 fl (79-97); Monocytes # (Auto) 0.6 K/mm3 (0.0-0.8); Monocytes % (Auto) 7.7 % (0.0-7.3); Platelet Count 196 K/mm3 (140-440); Red Blood Count 4.15 M/mm3 (3.65-5.03); Red Cell Distribution Width 13.6 % (13.2-15.2)
[2021-06-30 11:11] LABS: Alanine Aminotransferase 18 units/L (7-56); Albumin 3.7 g/dL (3.9-5); Blood Urea Nitrogen 11 mg/dL (7-17); Calcium 9.1 mg/dL (8.4-10.2); Chol/HDL Ratio 3.75 %; HDL Cholesterol 45 mg/dL (40-59); Hemolysis Index 4; LDL Cholesterol,Direct 123 mg/dL (50-130)
[2021-06-30 11:20] LABS: BUN/Creatinine Ratio 16
[2021-07-04 13:08] LABS: Vitamin D, 25-OH, D2 <4 ng/mL
== END 2021-06-30 10:16 | disposition home or self-care (01) ==
LOC: LAB 10:15
PROVIDERS: ATTEND Internal Medicine
DX: Z13.29 Encounter for screening for other suspected endocrine disorder (principal); Z00.00 Encounter for general adult medical examination without abnormal findings; E78.5 Hyperlipidemia, unspecified; E11.9 Type 2 diabetes mellitus without complications; E11.40 Type 2 diabetes mellitus with diabetic neuropathy, unspecified; R56.9 Unspecified convulsions
CPT/HCPCS: 36415; 80053; 80061; 82306; 82607; 83036; 84443; 85025

== ENCOUNTER 2021-11-17 08:59 | Outpatient (CLI) | payer BC ==
[2021-11-17 09:41] LABS: Chol/HDL Ratio 4.67 %
== END 2021-11-17 09:00 | disposition home or self-care (01) ==
LOC: LAB 08:59
PROVIDERS: ATTEND Internal Medicine
DX: E11.40 Type 2 diabetes mellitus with diabetic neuropathy, unspecified (principal); E78.5 Hyperlipidemia, unspecified
CPT/HCPCS: 36415; 80061; 83036